=== PATIENT | male | born 1965 | race Caucasian/White ===

== ENCOUNTER 2016-10-26 11:31 | Emergency (ER) ==
[2016-10-26] MEDS ORDERED: NARCAN IV ONE (11:41)
[2016-10-26] MEDS ORDERED: NS 1,000 ML IV ONE ×2 (11:41→11:43)
[2016-10-26 11:49] LABS: ALLEN TEST YES; BE -4.5 mmoll (-3.0-3.0); BLOOD TYPE ARTERIAL; DRAW SITE R RADIAL; METHB 1.1 % (0.0-1.5); MODALITY PRB; PCO2(98.6) 40 mmHg (35-45); PO2(98.6) 294 mmHg (60-100); SAMPLE BLOOD; SAO2 100.9 % (95.0-100.0); THB 15.6 g/dL (11.5-17.4); pH(98.6) 7.33 (7.35-7.45)
[2016-10-26 11:50] LABS: MANUAL DIFF NEEDED? NO
--- NOTE | 2016-10-26 11:54 | PROVIDER DOCUMENTATION ---
[facility] Abuse/Overdose - General Source: patient - History of Present Illness-Drug/Alcohol This episode of drinking or use began:: just prior to arrival Severity: reports: severe Similar Symptoms Previously?: No Recently seen or treated by another doctor?: No - Substance Abuse Substance Use: reports: other (Unknown) - Overdose Intentional drug overdose?: (Unknown) <Teresita Doe - Last Filed: 10/26/16 15:51> <Mio Cruz - Last Filed: 10/26/16 16:02> - General Chief Complaint: Overdose Stated Complaint: overdose Time Seen by Provider: 10/26/16 11:39 Allergies/Adverse Reactions: Allergies Allergy/AdvReac Type Severity Reaction Status Date / Time codeine [Codeine] Allergy Severe ANAPHYLAXIS Verified 10/26/16 13:12 morphine Allergy RASH Verified 10/26/16 13:12 - History of Present Illness-Drug/Alcohol Nature of Presenting Problem: Presents to er with cc of unresponsive. Pt was found in parking lot of Emergency Department unresponsive nursing staff and ER team took stretcher and BVM to pt vehicle and started giving ventilations to pt. Upon entrance to ER room pt was given 2mg narcan where he had spontaneous respirations. Pt was responsive to sternal rub at that time. Pt was then placed on NRB at 15lpm ( Teresita Doe) Review of Systems - Adult - REVIEW OF SYSTEMS - ADULT ROS:: unobtainable per condition Constitutional: reports: other (unresponsive) Eyes: denies: discharge, blurred vision, double vision Ears, Nose, Mouth & Throat: denies: ear pain, sinus problem, throat pain Cardiovascular: reports: no symptoms reported Respiratory: denies: cough, shortness of breath, wheezing Gastrointestinal: reports: no symptoms reported Genitourinary: reports: no symptoms reported Musculoskeletal: reports: no symptoms reported Integumentary: reports: no symptoms reported Neurological: reports: no symptoms reported Psychiatric: reports: no symptoms reported Endocrine: reports: no symptoms reported Hematologic/Lymphatic: reports: no symptoms reported Allergic/Immunologic: reports: no symptoms reported All Other Systems: Reviewed and Negative <Teresita Doe - Last Filed: 10/26/16 15:51> Past History - Adult - PAST MEDICAL HISTORY-ADULT Review of Records: reports: Nursing Assessment Review, Medications Reviewed Major Childhood Illnesses: reports: denies history Cardiovascular: reports: denies history Respiratory: reports: denies history Gastrointestinal: reports: denies history Obstetrical/Gynecological: reports: denies history Genitourinary: reports: denies history Musculoskeletal: reports: chronic pain Neurological: reports: denies history Psychiatric: reports: anxiety Endocrine/Immune: reports: denies history Other Conditions: reports: MRSA - PRIOR SURGERIES/PROCEDURES Surgical/Procedure History: reports: reviewed, not pertinent - PRIOR HOSPITALIZATIONS Prior Hospitalizations: reports: none - IMMUNIZATION STATUS Childhood Immunizations: See Nurse Assessment Flu Vaccine: See Nurse Assessment - FAMILY HISTORY Family History: reviewed, not pertinent - SOCIAL HISTORY Smoking: denies Substance Use: other (unknown what drug) <NaderTeresita - Last Filed: 10/26/16 15:51> Physical Exam-General - PHYSICAL EXAM-ADULT Initial Vital Signs Reviewed: Yes - CONSTITUTIONAL General Appearance: severe distress, other (unresponsive). negative: appears well - EYES Eyes: PERRL/EOMI - RESPIRATORY Respiratory: respiratory distress - CARDIOVASCULAR Cardiovascular: tachycardia - MUSCULOSKELETAL Extremity: negative: normal gait, normal capillary refill - SKIN Integumentary: mottled, pallor - PSYCHIATRIC Psych/Mental Status: other (unresponsive) <Teresita Doe - Last Filed: 10/26/16 15:51> Progress - REASSESSMENT Reassessment #1 Time Reassessed: 13:34 (Pt is in no distress at this time is asleep responsive with verbal and painful stimuli alert and oriented x 1 upon waking.) Reassessment #2 Time Reassessed: 14:40 (Pt is awake and alert and oriented x 4 at this time in no distress.) - EKG 1 Time of EKG reading by physician:: 11:37 EKG Read and Signed by:: Mio Cruz EKG Interpretation (*Must complete 3 of following elements*): Abnormal (no stemi ;Artifact sinus tachy) Rate: 119 Rhythm: sinus tachy w/freq alberto vent comp and fusion compl [place]: normal QRS: normal - XRAY 1 XRAY: Bilateral XRAY Study: Chest Impression: Normal XRAY Interpretation: nad - CT/MRI 2 CT Study: Head Impression: Normal CT Results: no blood no mass no hemm <Terseita Doe - Last Filed: 10/26/16 15:51> <Mio Cruz - Last Filed: 10/26/16 16:02> - PLAN OF CARE/RESULTS Progress/Plan/Lab Results: Orders Category Date Time Status Cardiac Monitoring DIRECTED Care 10/26/16 11:40 Active Finger Stick Blood Sugar (ED) DIRECTED Care 10/26/16 11:40 Active Saline Loc DIRECTED Care 10/26/16 11:40 Active CHEST-PORTABLE [RAD] Stat Exams 10/26/16 11:43 Ordered HEAD W/O CONTRAST [CT] Stat Exams 10/26/16 11:42 Ordered HEAD/C-SPINE W/O CONTRAST [CT] Stat Exams 10/26/16 11:42 Ordered ABG [RESP] Routine Lab 10/26/16 11:39 Completed ACETAMINOPHEN [TDM] Stat Lab 10/26/16 11:35 Received ALCOHOL BLOOD Stat Lab 10/26/16 11:35 Received CBC WITH ELECTRONIC DIFF [HEME] Stat Lab 10/26/16 11:35 Results COMPREHENSIVE METABOLIC PANEL [CHEM] Stat Lab 10/26/16 11:35 Received SALICYLATES [TDM] Stat Lab 10/26/16 11:35 Received URINE DRUG SCREEN Stat Lab 10/26/16 11:40 Uncollected 0.9% Sodium Chloride Inj [Ns] 1,000 ml Med 10/26/16 11:41 Active IV 999 mls/hr 0.9% Sodium Chloride Inj [Ns] 1,000 ml Med 10/26/16 11:43 Active IV 999 mls/hr Naloxone [Narcan] Med 10/26/16 11:41 Discontinued 2 mg IV NOW ONE Pulse Oximetry Stat Oth 10/26/16 11:40 Active after 2mg of narcan pt had spontaneous respirations and was placed on NRB at 15 lpm and responsive to sternal rub. Vital Signs - 24 hr 10/26/16 11:59 Pulse Rate 107 H Respiratory 14 Rate Blood Pressure 132/86 O2 Sat by Pulse 100 Oximetry Laboratory Tests 10/26/16 10/26/16 10/26/16 11:35 11:35 11:35 WBC 18.12 H RBC 5.22 Hgb 15.7 Hct 48.4 MCV 92.7 MCH 30.1 MCHC 32.4 L RDW Std Deviation 12.9 Plt Count 422 H MPV 10.9 H Immature Gran % (Auto) 0.3 Neut % (Auto) 50.4 Lymph % (Auto) 41.0 Oliver % (Auto) 7.1 Eos % (Auto) 0.8 Baso % (Auto) 0.4 Immature Gran # (Auto) 0.06 H Neut # (Auto) 9.11 H Lymph # (Auto) 7.43 H Oliver # (Auto) 1.29 H Eos # (Auto) 0.15 Baso # (Auto) 0.08 Specimen Type Sample Site pH pCO2 pO2 HCO3 Base Excess Oxyhemoglobin ABG O2 Sat (Calculated) ABG O2 Saturation ABG Carboxyhemoglobin ABG Methemoglobin Norberto Test A-a O2 Difference Total Hemoglobin Lactate Blood Gas Modality FiO2 % Sodium 130 L Potassium 3.3 L Chloride 93 L Carbon Dioxide 24 L Anion Gap 13 BUN 15 Creatinine 1.0 Estimated GFR/1.73 m2 > 60 BUN/Creatinine Ratio 15 Glucose 250 H Calculated Osmolality 270 Calcium 9.4 Total Bilirubin 0.69 AST 45 H ALT 48 H Alkaline Phosphatase 91 Total Protein 7.5 Albumin 4.4 Globulin 3.1 Albumin/Globulin Ratio 1.4 Salicylates < 3.00 L Acetaminophen < 1.2 L Plasma/Serum Ethyl Alc 10/26/16 11:39 WBC RBC Hgb Hct MCV MCH MCHC RDW Std Deviation Plt Count MPV Immature Gran % (Auto) Neut % (Auto) Lymph % (Auto) Oliver % (Auto) Eos % (Auto) Baso % (Auto) Immature Gran # (Auto) Neut # (Auto) Lymph # (Auto) Oliver # (Auto) Eos # (Auto) Baso # (Auto) Specimen Type ARTERIAL Sample Site R RADIAL pH 7.33 L pCO2 40 pO2 294 H HCO3 21.4 Base Excess -4.5 L Oxyhemoglobin 97.4 ABG O2 Sat (Calculated) 22.0 ABG O2 Saturation 100.9 H ABG Carboxyhemoglobin 2.40 ABG Methemoglobin 1.1 Norberto Test YES A-a O2 Difference 226.0 Total Hemoglobin 15.6 Lactate 3.60 H Blood Gas Modality PRB FiO2 % 80.0 Sodium Potassium Chloride Carbon Dioxide Anion Gap BUN Creatinine Estimated GFR/1.73 m2 BUN/Creatinine Ratio Glucose Calculated Osmolality Calcium Total Bilirubin AST ALT Alkaline Phosphatase Total Protein Albumin Globulin Albumin/Globulin Ratio Salicylates Acetaminophen Plasma/Serum Ethyl Alc Laboratory Tests 10/26/16 10/26/16 10/26/16 11:35 11:35 11:35 WBC 18.12 H RBC 5.22 Hgb 15.7 Hct 48.4 MCV 92.7 MCH 30.1 MCHC 32.4 L RDW Std Deviation 12.9 Plt Count 422 H MPV 10.9 H Immature Gran % (Auto) 0.3 Neut % (Auto) 50.4 Lymph % (Auto) 41.0 Oliver % (Auto) 7.1 Eos % (Auto) 0.8 Baso % (Auto) 0.4 Immature Gran # (Auto) 0.06 H Neut # (Auto) 9.11 H Lymph # (Auto) 7.43 H Oliver # (Auto) 1.29 H Eos # (Auto) 0.15 Baso # (Auto) 0.08 Specimen Type Sample Site pH pCO2 pO2 HCO3 Base Excess Oxyhemoglobin ABG O2 Sat (Calculated) ABG O2 Saturation ABG Carboxyhemoglobin ABG Methemoglobin Norberto Test A-a O2 Difference Total Hemoglobin Lactate Blood Gas Modality FiO2 % Sodium 130 L Potassium 3.3 L Chloride 93 L Carbon Dioxide 24 L Anion Gap 13 BUN 15 Creatinine 1.0 Estimated GFR/1.73 m2 > 60 BUN/Creatinine Ratio 15 Glucose 250 H Calculated Osmolality 270 Calcium 9.4 Total Bilirubin 0.69 AST 45 H ALT 48 H Alkaline Phosphatase 91 Total Protein 7.5 Albumin 4.4 Globulin 3.1 Albumin/Globulin Ratio 1.4 Salicylates < 3.00 L Urine Opiates Screen Ur Oxycodone Screen Ur Methadone, Qual Acetaminophen < 1.2 L Ur Barbiturates Screen Ur Phencyclidine Scrn Ur Amphetamines Screen U Benzodiazepines Scrn Urine Cocaine Screen U Cannabinoids Screen Plasma/Serum Ethyl Alc 10/26/16 10/26/16 11:39 14:17 WBC RBC Hgb Hct MCV MCH MCHC RDW Std Deviation Plt Count MPV Immature Gran % (Auto) Neut % (Auto) Lymph % (Auto) Oliver % (Auto) Eos % (Auto) Baso % (Auto) Immature Gran # (Auto) Neut # (Auto) Lymph # (Auto) Oliver # (Auto) Eos # (Auto) Baso # (Auto) Specimen Type ARTERIAL Sample Site R RADIAL pH 7.33 L pCO2 40 pO2 294 H HCO3 21.4 Base Excess -4.5 L Oxyhemoglobin 97.4 ABG O2 Sat (Calculated) 22.0 ABG O2 Saturation 100.9 H ABG Carboxyhemoglobin 2.40 ABG Methemoglobin 1.1 Norberto Test YES A-a O2 Difference 226.0 Total Hemoglobin 15.6 Lactate 3.60 H Blood Gas Modality PRB FiO2 % 80.0 Sodium Potassium Chloride Carbon Dioxide Anion Gap BUN Creatinine Estimated GFR/1.73 m2 BUN/Creatinine Ratio Glucose Calculated Osmolality Calcium Total Bilirubin AST ALT Alkaline Phosphatase Total Protein Albumin Globulin Albumin/Globulin Ratio Salicylates Urine Opiates Screen NONE DETECTED Ur Oxycodone Screen NONE DETECTED Ur Methadone, Qual NONE DETECTED Acetaminophen Ur Barbiturates Screen NONE DETECTED Ur Phencyclidine Scrn NONE DETECTED Ur Amphetamines Screen PRESUMPTIVE POSITIVE A U Benzodiazepines Scrn NONE DETECTED Urine Cocaine Screen NONE DETECTED U Cannabinoids Screen NONE DETECTED Plasma/Serum Ethyl Alc (Teresita Doe) Departure - Departure Time of Disposition Order: 15:52 Certified Medical Emergency: Emergent <Teresita Doe - Last Filed: 10/26/16 15:51> - Departure Time of Disposition Order: 16:00 Certified Medical Emergency: Emergent <Mio Cruz - Last Filed: 10/26/16 16:02> - Departure DIAGNOSIS: Drug overdose Qualifiers: Encounter type: initial encounter Injury intent: accidental or unintentional Qualified Code(s): T50.901A - Poisoning by unspecified drugs, medicaments and biological substances, accidental (unintentional), initial encounter Disposition: HOME 01 Condition: Stable Additional Instructions: ED Follow Up Instructions: You have been treated by a care provider in the Emergency Department. These instructions are being provided to you so you can have an understanding of how to care for yourself upon discharge. Upon discharge from the Emergency Department, you are responsible for making arrangements for follow-up care by a physician of your choice. Take all prescribed medications as directed. Return to the Emergency Department immediately for any new or worsening symptoms. You may call the Physician Referral phone number at [phone] to obtain a list of Physicians who are taking new patients. 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 <Teresita Doe - Last Filed: 10/26/16 15:51> Physician Attestation
[2016-10-26 11:56] LABS: BASO% 0.4 % (0.0-0.8); EOS# 0.15 X1000 (0.0-0.7); EOS% 0.8 % (0.0-10.0); HEMATOCRIT 48.4 % (42.0-52.0); HEMOGLOBIN 15.7 g/dL (14.0-18.0); IMM GRAN# 0.06 X1000 (0.0-0.04); IMM GRAN% 0.3 % (0.0-0.5); LYMPH# 7.43 X1000 (1.2-3.4); MCH 30.1 PG (27-31); MCHC 32.4 g/dL (33-37); MCV 92.7 FL (81-99); MONO# 1.29 X1000 (0.11-0.59); MONO% 7.1 % (1.7-9.3); MPV 10.9 FL (7.4-10.4); NEUT% 50.4 % (42.2-75.2); PLT 422 X1000 (130-400); RBC 5.22 XMIL (4.7-6.1)
[2016-10-26 12:20] LABS: ACETAMINOPHEN < 1.2 ug/mL (10-30); AGAP 13; ALBUMIN 4.4 g/dL (3.5-5.0); ALKALINE PHOSPHATASE 91 U/L (32-122); BUN 15 mg/dL (8-22); CALCIUM 9.4 mg/dL (8.8-10.2); CHLORIDE 93 mmol/L (98-107); COSMO 270; GOT 45 U/L (10-34); GPT 48 U/L (10-44); POTASSIUM 3.3 mmol/L (3.5-5.1); SODIUM 130 mmol/L (136-145); TCO2 24 mmol/L (25-35); TOTAL BILIRUBIN 0.69 mg/dL (0.20-1.00); TOTAL PROTEIN 7.5 g/dL (6.3-8.3)
--- NOTE | 2016-10-26 13:31 | Diag Imaging Result Document ---
PROCEDURE NAME: CHEST-PORTABLE - 10/26/2016 AP PORTABLE CHEST: TIME: 1158 hours Normal chest.
--- NOTE | 2016-10-26 13:42 | Diag Imaging Result Document ---
PROCEDURE NAME: HEAD/C-SPINE W/O CONTRAST - 10/26/2016 CT OF THE HEAD WITHOUT CONTRAST: FINDINGS: There is no evidence of mass effect, bleed, or abnormal extra-axial fluid collection. The visualized paranasal sinuses are clear and the calvarium appears to be intact. Compared to 09/15/2016 there has been no significant change in the appearance of the brain. IMPRESSION: No evidence of acute disease. CT OF THE CERVICAL SPINE: FINDINGS: There is fibrosis in the lung apices. There is no evidence of acute fracture or subluxation. Some degenerative facet disease is present on the right side at the C3-4 level. No prevertebral soft tissue swelling is present. IMPRESSION: No acute disease.
--- NOTE | 2016-10-26 15:04 | EKG Report ---
Test Performed on : 10/26/2016 11:37:14 AM Test Reason : ED. Not ordered in [place] Blood Pressure : / mmHG Vent. Rate : 119 BPM Atrial Rate : 119 BPM P-R Int : 150 ms QRS Dur : 112 ms QT Int : 350 ms P-R-T Axes : 079 089 057 degrees QTc Int : 492 ms Poor data quality, interpretation may be adversely affected Sinus tachycardia. with frequent premature ventricular complexes. and fusion complexes Otherwise normal ECG When compared with ECG of 26-OCT-2016 11:35, (Unconfirmed) fusion complexes are now present premature ventricular complexes. are now present Unconfirmed Result
[2016-10-26 15:18] LABS: UR AMPHETAMINES QUAL PRESUMPTIVE POSITIVE (NONE DETECT); UR BARBITUATES QUAL NONE DETECTED (NONE DETECT); UR BENZODIAZEPIN QUAL NONE DETECTED (NONE DETECT); UR CANNABINOIDS QUAL NONE DETECTED (NONE DETECT); UR COCAINE QUAL NONE DETECTED (NONE DETECT); UR METHADONE QUAL NONE DETECTED (NONE DETECT); UR OPIATES QUAL NONE DETECTED (NONE DETECT); UR OXYCODONE QUAL NONE DETECTED (NONE DETECT); UR PCP QUAL NONE DETECTED (NONE DETECT)
[2016-10-26 16:33] VITALS: BP 130/74
== END 2016-10-26 16:33 | disposition home or self-care (01) ==
LOC: ED 11:31
DX: T43.621A Poisoning by amphetamines, accidental (unintentional), initial encounter (principal); R00.0 Tachycardia, unspecified; R94.31 Abnormal electrocardiogram [ECG] [EKG]; R40.0 Somnolence; G89.29 Other chronic pain; A49.02 Methicillin resistant Staphylococcus aureus infection, unspecified site
CPT/HCPCS: 70450; 71010; 72125; 80053; 82805; 85025; 93005; 96374; G0480; J2310; J7030